=== PATIENT | male | born 1970 | race Caucasian/White ===

== ENCOUNTER 2023-02-25 07:36 | Outpatient (CLI) | payer BC ==
[2023-02-25] MEDS ORDERED: Iopamidol 370 76% 100 ML VIAL ONE (14:11)
== END 2023-02-25 07:37 | disposition home or self-care (01) ==
LOC: CSHCT 07:36
PROVIDERS: ATTEND Internal Medicine
DX: C49.9 Malignant neoplasm of connective and soft tissue, unspecified (principal); R19.09 Other intra-abdominal and pelvic swelling, mass and lump
CPT/HCPCS: 71260; Q9967

== ENCOUNTER 2023-03-19 15:20 | Outpatient (CLI) | payer BC | END 2023-03-19 15:21 | disposition home or self-care (01) | LOC: CSHRAD 15:20 | PROVIDERS: ATTEND Internal Medicine | DX: Z01.818 Encounter for other preprocedural examination (principal); C49.9 Malignant neoplasm of connective and soft tissue, unspecified | CPT/HCPCS: 93005; 93010 ==